=== PATIENT | female | born 1955 | race Caucasian/White ===

== ENCOUNTER → 2016-09-24 | Outpatient (CLI) | payer MEDICAID ==
--- NOTE | 2016-09-24 16:00 | DX ---
Cervical Spine, Two Views History: Pain. History of metastatic breast cancer. Findings: No evidence for a fracture. No significant spondylolisthesis. Facet arthropathy is seen radha aterally at multiple levels. This is more severe on the left at C2-C3, C3-C4, and C4-C5. Uncovertebra l joint hypertrophy is seen bilaterally. No evidence for aggressive osseous lesion. No evidence for p revertebral soft tissue swelling. Impression: Multilevel degenerative joint disease of the cervical spine, more severe on the left at C 2-C3 through C4-C5.
--- NOTE | 2016-09-24 16:13 | DX ---
Left Wrist, Three Views History: Wrist pain. History of metastatic breast cancer. Findings: There is diffuse demineralization. No evidence for acute fracture or dislocation. No signif icant joint narrowing or periarticular erosion. Impression: Diffuse demineralization. No definite acute fracture.
--- NOTE | 2016-09-24 16:21 | DX ---
Left Hand, Three Views History: Pain. History of metastatic breast cancer. Findings: There is diffuse demineralization. There is mild periarticular spurring at the first carpom etacarpal joint and first metacarpophalangeal joint, indicating mild degenerative change. No evidence for periarticular erosion. An ossification is seen at the terminal tuft of the left fifth finger, a sequela from old trauma. Mild cortical thickening and sclerosis at the proximal fifth phalanx, probab ly a sequela from old healed fracture. No evidence for acute fracture or dislocation. No evidence for aggressive osseous lesion. Impression: Diffuse demineralization. No evidence for acute fracture.
== END ==
LOC: FIMAGING 13:33
PROVIDERS: ATTEND Nurse Practitioner
DX: M50.31 Other cervical disc degeneration, high cervical region (principal); M50.321 Other cervical disc degeneration at C4-C5 level; M25.532 Pain in left wrist; M25.542 Pain in joints of left hand; Z85.3 Personal history of malignant neoplasm of breast

== ENCOUNTER 2017-01-03 16:30 | Emergency (ER) | payer MEDICAID ==
[2017-01-03 16:53] VITALS: TEMP 98.6
[2017-01-03] MEDS ORDERED: IPRATROPIUM/ALBUTEROL 3 ML DEYVIAL IH ONE (17:02)
[2017-01-03] MEDS ORDERED: NS 1,000 ML IV ONE (17:02)
--- NOTE | 2017-01-03 17:02 | EDPHY ---
H & P HPI/ROS: HPI CHIEF COMPLAINT: Shortness of breath HISTORY OF PRESENT ILLNESS: Patient very pleasant 61-year-old female she does have significant past medical history for breast cancer metastatic to her lungs and bone, she has a left pleural chest tube left posterior region that she drained yesterday. She also has a history of muscular dystrophy, as well as anxiety. History of pneumonia. She presents emergency room feeling short of breath progressively worse over the past week. No fever. She does have a cough but nonproductive. She does wear oxygen at night only and CPAP. Main complaint is worsening shortness of breath over the past week. She tells me she has no history of PE. She does tell me she has metastatic breast CA to her lung. She does see Dr. Fink with Oncology but is not undergoing any treatment at this time. Past Medical History: Breast CA, metastatic to lung and bone, muscular dystrophy, anxiety Past Surgical History: Mastectomy, left posterior chest pleural catheter Social History: Smokes tobacco, denies drugs alcohol Family History: Noncontributory ROS REVIEW OF SYSTEMS: A comprehensive 10 point review of systems is otherwise negative aside from elements mentioned in the history of present illness. Exam Constitutional triage nursing summary reviewed, vital signs reviewed, awake/ alert. Tachypnea, low O2. Eyes normal conjunctivae and sclera, EOMI, PERRLA. HENT normal inspection, atraumatic, moist mucus membranes, no epistaxis, neck supple/ no meningismus, no raccoon eyes. Respiratory tachypnea, decreased breath sounds bilaterally worse on the left than right Cardiovascular rate normal, regular rhythm, no murmur, no edema, distal pulses normal. Gastrointestinal soft, non-tender, no rebound, no guarding, normal bowel sounds, no distension, no pulsatile mass. Genitourinary no CVA tenderness. Musculoskeletal no midline vertebral tenderness, full range of motion, no calf swelling, no tenderness of extremities, no meningismus, good pulses, neurovascularly intact. Skin pink, warm, & dry, no rash, skin atraumatic. Neurologic awake, alert and oriented x 3, AAOx3, moves all 4 extremities equally, motor intact, sensory intact, CN II-XII intact, normal cerebellar, normal vision, normal speech. Psychiatric normal mood/affect. Heme/Lymph/Immune no lymphadenopathy. Differential Diagnosis: Includes but is not limited to in a particular order, pneumonia, pulmonary embolism, pleural effusion, pneumothorax, CHF, ACS Medical Decision Making: Plan for patient IV establishment full youth nutritional monitor , EKG, IV fluid bolus, lactic acid blood cultures, two view chest x-ray D-dimer for PE. DuoNeb breathing treatment. Re-evaluation: EKG interpretation by me on record in [employer] system. Impression time of EKG 17 10, this is sinus tachycardia rate of 101. Do not appreciate acute ischemic change. No ST elevations significant ST depression T-wave abnormality. [id number]: Patient received breathing treatment she states admitted very mild difference however still short of breath. Mildly tachypneic. X-ray has been reviewed shows left-sided pleural effusion haziness throughout both lung cid. Is noted this patient has a positive D-dimer. The setting of tachycardia and shortness of breath history of cancer will need to perform a CT angiogram to rule out pulmonary embolism. Troponin still pending. CT scan of the angiogram chest with IV contrast. The results of the study are this shows no pulmonary embolism however does show moderate left-sided pleural effusion, ear broncho backwards and atelectasis, no focal pneumonia, osseous lesion left 7th rib with a pathological fracture, possible small osseous lesion left left 11th rib otherwise no acute other pathology in the chest.. The study was read by Dr. Clyde Addison I viewed the images myself on the PACS system. 1940: I had a very long discussion with the patient she is refusing hospital admission. I explained that I would like to hospitalize her for tachypnea and low oxygen level left-sided pleural effusion atelectasis. Given that she has muscular dystrophy in her muscles are chronically weak has a respiratory process going on she understands would like to keep her in the hospital for observation close monitor respiratory status. However she is declining hospitalization refusing hospitalization. She would like to go home. I explained that she will need to sign out against medical advice as I explained to her that I would really like to keep her and that if she leaves there is a great chance of increasing morbidity, even mortality or worsening respiratory status. Respiratory decline. She still is refusing hospitalization she does understand the risk of this. She would like to go home. I explained I will prescribe her azithromycin at her request an albuterol inhaler however if she has any worsening symptoms at any time including worsening trouble breathing, shortness of breath chest pain does not feel well she needs to seek medical attention in the emergency room she understands. Patient has signed out against medical advice. AMA form has been signed. Witnessed by Michelle Xiong RN. Source: Patient - Personal History Tetanus Vaccine Date: WITHIN 10 YRS - Medical/Surgical History Hx Asthma: No Hx Chronic Respiratory Disease: Yes Hx Diabetes: No Hx Cardiac Disease: No Hx Renal Disease: No Hx Cirrhosis: No Hx Alcoholism: No Hx HIV/AIDS: No Hx Splenectomy or Spleen Trauma: No Other PMH: MD,MASTECTOMY,KIDNEY STONES,RESP-PNEUMONIA X2 THIS PAST YEAR(2013) WEARS HOME O2 AT HS - Social History Smoking Status: Never smoked Constitutional: Initial Vital Signs Temperature (C) 37 C 01/03/17 16:37 Heart Rate 102 H 01/03/17 16:37 Respiratory Rate 18 01/03/17 16:37 Blood Pressure 139/91 H 01/03/17 16:37 O2 Sat (%) 91 L 01/03/17 16:37 O2 Delivery Mode Nasal Cannula O2 (L/minute) 2 Allergies/Adverse Reactions: Sulfa (Sulfonamide Antibiotics) Allergy (Intermediate, Verified 10/15/14 13:01) Home Medications: Medication Instructions Recorded Muscle Relaxers 04/12/15 AZITHROMYCIN [Z-PACK] 250 mg PO DAILY #6 tab 01/03/17 Albuterol [Proventil Inhaler HFA 1 - 2 puffs IH Q4H #1 mdi 01/03/17 (*)] Medical Decision Making - Diagnostics Imaging Results: Imaging Impressions Chest X-Ray 01/03/17 17:02 Impression: 1. Stable position of Braxton drain left hemithorax. 2. Stable mild to moderate left effusion with possible small right effusion layering posteriorly. 3. Lytic lesion suspected posterior lateral left seventh rib. Chest/Thorax CTA 01/03/17 17:57 Impression: 1. There is no CT evidence of pulmonary artery thromboemboli. 2. Status post right mastectomy and right axillary charisse dissection. 3. Moderate left pleural effusion with a percutaneous drain present and left lower lobe atelectasis and infiltrate with peribronchial thickening, left greater than right. There is also some very mild subsegmental atelectasis at the right costophrenic angle. 4. Osseous metastases, with a pathologic fracture of the left seventh posterior rib. Findings were discussed with Gabino Sánchez MD at 19:24, on 01/03/2017. - Data Points Laboratory Results: Laboratory Results 01/03/17 17:20 01/03/17 17:20 01/03/17 01/03/17 01/03/17 17:20 17:20 17:20 WBC RBC Hgb Hct MCV MCH MCHC RDW Plt Count MPV Neut % (Auto) Lymph % (Auto) Carter % (Auto) Eos % (Auto) Baso % (Auto) Nucleat RBC Rel Count Absolute Neuts (auto) Absolute Lymphs (auto) Absolute Monos (auto) Absolute Eos (auto) Absolute Basos (auto) Absolute Nucleated RBC Immature Gran % Immature Gran # PT 13.0 SEC SEC (12.0-15.0) INR 1.01 (0.83-1.16) APTT 31.6 SEC SEC (23.0-38.0) D-Dimer 0.94 ug/mLFEU H ug/mLFEU (0.00-0.50) VBG Lactic Acid 1.0 mmol/L mmol/L (0.7-2.1) Sodium 137 mEq/L mEq/L (134-144) Potassium 4.2 mEq/L mEq/L (3.5-5.2) Chloride 100 mEq/L mEq/L (97-110) Carbon Dioxide 23 mEq/l mEq/l (22-31) Anion Gap 14 mEq/L mEq/L (8-16) BUN 10 mg/dL mg/dL (7-23) Creatinine 0.3 mg/dL L mg/dL (0.6-1.0) Estimated GFR > 60 Glucose 93 mg/dL mg/dL (70-100) Calcium 9.1 mg/dL mg/dL (8.5-10.4) Magnesium 1.8 mg/dL mg/dL (1.6-2.3) Total Bilirubin 0.8 mg/dL mg/dL (0.1-1.4) Conjugated Bilirubin 0.5 mg/dL mg/dL (0.0-0.5) Unconjugated Bilirubin 0.3 mg/dL mg/dL (0.0-1.1) AST 42 IU/L IU/L (14-46) ALT 46 IU/L IU/L (9-52) Alkaline Phosphatase 94 IU/L IU/L (38-126) Creatine Kinase 121 IU/L IU/L (0-156) CK-MB (CK-2) Fraction 5.74 ng/mL H ng/mL (0-4.55) CK-MB (CK-2) % 4.7 % H % (0.0-4.0) Creatine Kinase Interp POSITIVE H (NEGATIVE) Troponin I < 0.012 ng/mL ng/mL (0-0.034) NT-Pro-B Natriuret Pep 215 pg/mL H pg/mL (0-125) Total Protein 6.8 g/dL g/dL (6.3-8.2) Albumin 3.7 g/dL g/dL (3.5-5.0) Lipase 96.0 IU/L IU/L (23-300) 01/03/17 17:20 WBC 5.11 10^3/uL 10^3/uL (3.80-9.50) RBC 4.60 10^6/uL 10^6/uL (4.18-5.33) Hgb 15.7 g/dL g/dL (12.6-16.3) Hct 45.1 % % (38.0-47.0) MCV 98.0 fL fL (81.5-99.8) MCH 34.1 pg pg (27.9-34.1) MCHC 34.8 g/dL g/dL (32.4-36.7) RDW 13.5 % % (11.5-15.2) Plt Count 240 10^3/uL 10^3/uL (150-400) MPV 9.0 fL fL (8.7-11.7) Neut % (Auto) 62.3 % % (39.3-74.2) Lymph % (Auto) 24.9 % % (15.0-45.0) Carter % (Auto) 10.6 % % (4.5-13.0) Eos % (Auto) 1.2 % % (0.6-7.6) Baso % (Auto) 0.6 % % (0.3-1.7) Nucleat RBC Rel Count 0.0 % % (0.0-0.2) Absolute Neuts (auto) 3.19 10^3/uL 10^3/uL (1.70-6.50) Absolute Lymphs (auto) 1.27 10^3/uL 10^3/uL (1.00-3.00) Absolute Monos (auto) 0.54 10^3/uL 10^3/uL (0.30-0.80) Absolute Eos (auto) 0.06 10^3/uL 10^3/uL (0.03-0.40) Absolute Basos (auto) 0.03 10^3/uL 10^3/uL (0.02-0.10) Absolute Nucleated RBC 0.00 10^3/uL 10^3/uL (0-0.01) Immature Gran % 0.4 % % (0.0-1.1) Immature Gran # 0.02 10^3/uL 10^3/uL (0.00-0.10) PT INR APTT D-Dimer VBG Lactic Acid Sodium Potassium Chloride Carbon Dioxide Anion Gap BUN Creatinine Estimated GFR Glucose Calcium Magnesium Total Bilirubin Conjugated Bilirubin Unconjugated Bilirubin AST ALT Alkaline Phosphatase Creatine Kinase CK-MB (CK-2) Fraction CK-MB (CK-2) % Creatine Kinase Interp Troponin I NT-Pro-B Natriuret Pep Total Protein Albumin Lipase Medications Given: Discontinued Medications Albuterol/Ipratropium (Duoneb) 3 ml IH EDNOW ONE Stop: 01/03/17 17:03 Last Admin: 01/03/17 17:45 Dose: 3 ml Sodium Chloride (Ns) 1,000 mls @ 0 mls/hr IV ONCE ONE PRN Reason: Wide Open Stop: 01/03/17 17:03 Last Admin: 01/03/17 17:40 Dose: 1,000 mls Departure - Departure Disposition: Against Medical Advice Clinical Impression: Hypoxia, Pleural effusion, Atelectasis Dyspnea Qualifiers: Dyspnea type: unspecified Qualified Code(s): R06.00 - Dyspnea, unspecified Condition: Fair Instructions: Dyspnea (ED), Hypoxia (ED) Additional Instructions: 1. Please return emergency room if he changed her mind about hospital admission. 2. Return emergency room immediately if you have worsening symptoms includes worsening shortness of breath, chest pain you do not feel well. Referrals: ALICE CARRION,. [Primary Care Provider] - As per Instructions Prescriptions: Albuterol [Proventil Inhaler HFA (*)] 1 - 2 puffs IH Q4H #1 mdi AZITHROMYCIN [Z-PACK] 250 mg PO DAILY #6 tab
--- NOTE | 2017-01-03 17:11 | CPEKG ---
Heart Rate: 101 RR Interval: 594 P-R Interval: 140 QRSD Interval: 82 QT Interval: 356 QTC Interval: 462 P [place]: 55 QRS [place]: 29 T Wave [place]: 38 EKG Severity - OTHERWISE NORMAL ECG - EKG Impression: SINUS TACHYCARDIA Electronically Signed By: Luis A Aguilera 04-Jan-2017 14:25:43
[2017-01-03 17:30] LABS: % IMMATURE GRANULYOCYTES 0.4 % (0.0-1.1); ABSOLUTE IMMATURE GRANULOCYTES 0.02 10^3/uL (0.00-0.10); ADD DIFF? NO; ADD MORPH? NO; ADD SCAN? NO; ATYPICAL LYMPHOCYTE FLAG 10 (0-99); FRAGMENT RBC FLAG 0 (0-99); HEMATOCRIT 45.1 % (38.0-47.0); HEMOGLOBIN 15.7 g/dL (12.6-16.3); LEFT SHIFT FLG 0 (0-99); LIPEMIA HEMOLYSIS FLAG 90 (0-99); MEAN CELL HEMOGLOBIN 34.1 pg (27.9-34.1); MEAN CELL HEMOGLOBIN CONCENTR. 34.8 g/dL (32.4-36.7); PLATELET CLUMPS FLAG 20 (0-99); PLATELET COUNT 240 10^3/uL (150-400); RED CELL DISTRIBUTION WIDTH 13.5 % (11.5-15.2)
[2017-01-03 17:41] LABS: INR 1.01 (0.83-1.16)
[2017-01-03 17:42] LABS: APTT 31.6 SEC (23.0-38.0)
[2017-01-03 17:45] LABS: ALANINE AMINOTRANSFERASE 46 IU/L (9-52); ALBUMIN 3.7 g/dL (3.5-5.0); ALKALINE PHOSPHATASE 94 IU/L (38-126); ANION GAP 14 mEq/L (8-16); ASPARTATE AMINOTRANSFERASE 42 IU/L (14-46); BILIRUBIN,TOTAL 0.8 mg/dL (0.1-1.4); BILIRUBIN-CONJUGATED 0.5 mg/dL (0.0-0.5); BILIRUBIN-UNCONJUGATED 0.3 mg/dL (0.0-1.1); CALCIUM 9.1 mg/dL (8.5-10.4); CARBON DIOXIDE 23 mEq/l (22-31); CHLORIDE 100 mEq/L (97-110); CREATININE 0.3 mg/dL (0.6-1.0); GLOMERULAR FILTRATION RATE > 60; GLUCOSE 93 mg/dL (70-100); MAGNESIUM 1.8 mg/dL (1.6-2.3); POTASSIUM 4.2 mEq/L (3.5-5.2); SODIUM 137 mEq/L (134-144); TOTAL PROTEIN 6.8 g/dL (6.3-8.2)
[2017-01-03 18:01] LABS: TROPONIN I < 0.012 ng/mL (0-0.034)
[2017-01-03 18:03] LABS: CREATINE KINASE-MB FRACTION 5.74 ng/mL (0-4.55)
[2017-01-03 18:06] LABS: CK-MB INTERPRETATION POSITIVE (NEGATIVE)
[2017-01-03] MEDS ORDERED: IOPAMIDOL (ISOVUE 370) 100 ML BTL IV ONE ×2 (18:10→18:37)
[2017-01-03 18:11] VITALS: RESP 28
[2017-01-03] MEDS ORDERED: AZITHROMYCIN 250 MG TAB PO ONE (19:44)
[2017-01-03] MEDS ORDERED: OXYCODONE/APAP 5/325MG PREPACK#4 BTL TAKEHOME ONE (20:07)
[2017-01-03 20:17] VITALS: BP 170/112; PULSE 88; O2SAT 91
== END 2017-01-03 20:16 | disposition left against medical advice (07) ==
LOC: CED 16:30
DX: R09.02 Hypoxemia (principal); J98.11 Atelectasis; J90 Pleural effusion, not elsewhere classified; Z85.118 Personal history of other malignant neoplasm of bronchus and lung; Z85.3 Personal history of malignant neoplasm of breast
CPT/HCPCS: 71010-PO; 71275-PO; 80048-PO; 80076-PO; 82550-PO; 82553-PO; 83605-PO; 83690-PO; 83735-PO; 83880-PO; 84484-PO; 85025-PO; 85378-PO; 85610-PO; 85730-PO; Q9967

== ENCOUNTER 2017-01-10 16:13 | Emergency (ER) | payer MEDICAID ==
[2017-01-10 16:46] VITALS: BP 165/92; PULSE 108; RESP 20; TEMP 98.6; O2SAT 87
[2017-01-10] MEDS ORDERED: ONDANSETRON DISINTEGRATING 4 MG TAB PO ONE (16:58)
[2017-01-10] MEDS ORDERED: OXYCODONE/APAP 5/325 TAB PO ONE (17:21)
--- NOTE | 2017-01-10 17:38 | EDPHY ---
H & P Stated Complaint: LEFT POSTERIOR LUNG DRAINAGE TUBE PAIN AT SITE SINCE SUNDAY Time Seen by Provider: 01/10/17 16:39 HPI/ROS: This patient has metastatic breast cancer and presents with increasing left posterior chest wall pain. She is concerned about possible infection at her pulmonary catheter site posteriorly on the left. She was seen here [address] Sánchez who work the patient up for increased dyspnea at that time and given an elevated D-dimer at that time she underwent CT angio chest which ruled out PE, confirmed longstanding left-sided effusion for which she has pulmonic drain in revealed a lytic lesion with pathological fracture of the left 7th rib posteriorly, lytic lesion to the level throat posteriorly and lytic lesion to T12 centrally. The patient admits that she is not taking Percocet because it makes her constipated but reports that she had difficulty sleeping due to the posterior rib pain last night. She feels that her dyspnea has improved. She is interested in having more antibiotics and she felt that her symptoms of dyspnea improved with treatment with the [place] that she received during her last visit for treatment of possible bronchitis. ROS: No fevers or chills. No other constitutional symptoms except baseline fatigue and weakness HEENT: No complaints except for a sore throat in the mornings for quite some time. She requests strep test. Pulmonary: Ongoing dyspnea somewhat improved from last week and at baseline currently. She reports 800 out from her pulmonic drain over the last 24 hours. Cardiovascular: No lightheadedness. No heart palpitations. No anterior chest pain. No lower extremity swelling or calf pain currently GI: She has chronic nausea and occasionally vomits. No recent change in that. No belly pain at this time. Neuro: She reports feeling of paresthesias occasional numbness around the T12 dermatome anteriorly. No other new neuro symptoms. Integumentary: She reports some scabbing at the site of the pulmonic drain posteriorly. No skin rash. Complete review of symptoms is otherwise negative. Source: Patient Exam Limitations: No limitations - Personal History Tetanus Vaccine Date: WITHIN 10 YRS - Medical/Surgical History PMH: Metastatic lung cancer Patient was on estrogen inhibitor that she stop taking in September of her own accord for reasons that are not entirely clear at this time. Hx Asthma: No Hx Chronic Respiratory Disease: Yes Hx Diabetes: No Hx Cardiac Disease: No Hx Renal Disease: No Hx Cirrhosis: No Hx Alcoholism: No Hx HIV/AIDS: No Hx Splenectomy or Spleen Trauma: No Other PMH: MD,MASTECTOMY,KIDNEY STONES,RESP-PNEUMONIA X2 THIS PAST YEAR(2013) WEARS HOME O2 AT HS - Social History Smoking Status: Never smoked Constitutional: Initial Vital Signs Temperature (C) 37.0 C 01/10/17 16:20 Heart Rate 108 H 01/10/17 16:20 Respiratory Rate 20 01/10/17 16:20 Blood Pressure 165/92 H 01/10/17 16:20 O2 Sat (%) 87 L 01/10/17 16:20 O2 Delivery Mode Room Air Allergies/Adverse Reactions: Sulfa (Sulfonamide Antibiotics) Allergy (Intermediate, Verified 01/10/17 16:37) Home Medications: Medication Instructions Recorded Muscle Relaxers 04/12/15 AZITHROMYCIN [Z-PACK] 250 mg PO DAILY #6 tab 01/03/17 Albuterol [Proventil Inhaler HFA 1 - 2 puffs IH Q4H #1 mdi 01/03/17 (*)] Docusate Sodium [Colace 100 MG (*)] 100 mg PO BID #30 cap 01/10/17 Lidocaine 5% [Lidoderm 5% Patch 2 ea TD DAILY #30 patch 01/10/17 (*)] oxyCODONE/APAP 5/325 [Percocet 1 - 2 tab PO Q4-6PRN PRN #12 tab 01/10/17 5/325 (*)] Medical Decision Making ED Course/Re-evaluation: Discussion: I had an extensive talk with this patient regarding her current symptoms and possibilities for workup. Clinically I feel her posterior rib pain is consistent with the 7th rib pathologic fracture and 11th lytic lesion noted on her CT angio chest on 01/03/17. I think that her paresthesias & intermittent numbness in the T12 dermatome correspond to her T12 lytic lesion. However, she has no acute motor sx's or long-track symptoms/findings. She seemed r somewhat reassured knowing that there is some anatomic correlation between her current somatic symptoms and underlying lytic lesions and pathologic fx noted on CT chest results from a week ago. 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 We had a ava conversation about whether she feels she wants to enter a palliative approach to her metastatic cancer versus further cancer treatment. She agrees to follow up with Dr. Fink , her oncologist to discuss her treatment plan. I also discussed other analgesic possibilities including lidocaine patch, and NSAIDs. Patient requests Percocet here and is given a Percocet PO. - Data Points Laboratory Results: 01/10/17 01/10/17 Unknown 17:40 Group A Strep Screen NEGATIVE (NEGATIVE) Group A Strep DNA Pending Medications Given: Discontinued Medications Ondansetron HCl (Zofran Odt) 4 mg PO EDNOW ONE Stop: 01/10/17 16:59 Last Admin: 01/10/17 17:00 Dose: 4 mg Oxycodone/Acetaminophen (Percocet 5/325) 1 tab PO EDNOW ONE Stop: 01/10/17 17:22 Last Admin: 01/10/17 17:25 Dose: 1 tab Departure - Departure Disposition: Home, Routine, Self-Care Clinical Impression: Pathologic 7th rib fracture, T12 lytic lesion, Paresthesias, Metastatic breast cancer Condition: Good Instructions: Rib Fracture (ED) Additional Instructions: Diagnoses: 1. Pathologic fracture to the left 7th rib from lytic bony lesion 2. 11th posterior rib lytic lesion 3. T12 vertebrae lytic lesion I think that your current pain is attributable to your rib lesions and fracture. Paresthesias or/tingling in the anterior belly are likely related to the thoracic spine lesion. Plan: Call Dr. Fink tomorrow morning to arrange follow-up appointment for sometime this week to discuss your plan for your cancer treatment. Consider adding Lidoderm patches over painful areas of your ribs to help control the pain Take Colace stool softener while your on the Percocet to prevent constipation Remember that she can take Tylenol with the Percocet with a dose of 1000 mg per 6 hours if needed for pain control. Return for any significant worsening despite the treatment plan. Referrals: ALICE CARRION,. [Primary Care Provider] - As per Instructions Nabil Fink MD [Medical Doctor] - As per Instructions Prescriptions: Docusate Sodium [Colace 100 MG (*)] 100 mg PO BID #30 cap Lidocaine 5% [Lidoderm 5% Patch (*)] 2 ea TD DAILY #30 patch oxyCODONE/APAP 5/325 [Percocet 5/325 (*)] 1 - 2 tab PO Q4-6PRN PRN #12 tab PRN Reason: Pain
== END 2017-01-10 17:59 | disposition home or self-care (01) ==
LOC: CED 16:13
DX: C79.81 Secondary malignant neoplasm of breast (principal); M84.48XA Pathological fracture, other site, initial encounter for fracture; M89.9 Disorder of bone, unspecified; R20.2 Paresthesia of skin
CPT/HCPCS: 87880-PO

== ENCOUNTER 2017-06-22 14:16 | Emergency (ER) | payer MEDICAID | END 2017-06-22 14:40 | disposition left against medical advice (07) | LOC: CED 14:16 | DX: Z53.21 Procedure and treatment not carried out due to patient leaving prior to being seen by health care provider (principal) ==

== ENCOUNTER 2017-06-22 15:24 | Emergency (ER) | payer MEDICAID ==
[2017-06-22 15:34] VITALS: TEMP 98.6
[2017-06-22 15:37] VITALS: O2SAT 93
--- NOTE | 2017-06-22 17:02 | EDPHY ---
General Narrative: CHIEF COMPLAINT: Malfunction of chest tube HISTORY OF PRESENT ILLNESS: Patient presents with complaints of possible in a function of chest tube this started on Sunday evening. She presents with her daughter in law at bedside. She says that she has a chest tube in place from pleural effusion that was placed 2 years ago at [facility]. She does not known the name of the physician, but she thinks was a plant facilities technician. She was sent from [facility] for this. She has had this in place the entire time. She drained every other day. She has not been told to have it removed. She has a history of metastatic breast cancer status post mastectomy with no current treatment. She says that the tube was leaking the bottom of it starting Sunday. She has had no leakage around the insertion site but the suture has broken free from that. The tube has not been changed and is the original to. No chest pain. No fever. No cough. No shortness of breath. She is dependent on 2 L nasal cannula during the day and CPAP at night. No trauma or injury. No other associated complaints or modifying factors. REVIEW OF SYSTEMS: Ten systems reviewed and are negative unless otherwise noted in the HPI PCP: [facility] SPECIALISTS: Dr. Fink, oncology Dr. Charlton, urology PAST MEDICAL HISTORY: Metastatic breast cancer, muscular dystrophy PAST SURGICAL HISTORY: Right mastectomy, right ureteral stent placement and removal SOCIAL HISTORY: Nonsmoker. Lives with her family in [place]. FAMILY HISTORY: Noncontributory EXAMINATION General Appearance: Alert, no distress. Wheelchair dependent. Frail Head: normocephalic, atraumatic Eyes: Pupils equal and round, no conjunctival pallor or injection ENT, Mouth: Mucous membranes moist. Uvula midline. Airway patent. Nasal cannula placement Neck: Normal inspection, supple, non-tender Respiratory: Scattered rhonchi. No consolidation or diminishment. There is a chest tube for a posterior approach on the left side subscapular region. The sutures are not in place for the attachment anchor. There is no surrounding erythema or purulence. No induration. No signs of infection or leakage. Cardiovascular: Regular rate and rhythm. No murmur Neurological: A&O, nonfocal, baseline neuro status with decreased range of motion of the arms and legs consistent with MD. Skin: Warm and dry, no rash. No petechiae purpura. There is no surrounding erythema, purulence or induration at the insertion site of the chest tube. The sutures have come free from the skin and are still in the wings of the anchor of the chest tube. Psychiatric: Mood and affect normal DIFFERENTIAL DIAGNOSES: Including but not limited to tube malfunction, pneumothorax, hemothorax, pleural effusion MDM: 4:15 p.m. Tube malfunction of a chronic chest tube from the left approach. She has no complaints of pneumonia or infection. She is only concerned that the tube will leak and she will accumulate air. She was told to come to the emergency department for tube exchange. I have inspected the remainder of the tube and it is normal in appearance despite the chronicity. There is no leakage other than the very distal end of the tube, and this is a serous leakage from the tube. She is in no acute distress. 4:30 p.m. Case discussed with on-call oncologist, Dr. Morales. He is aware the patient's scenario. He is comfortable with me temporizing the tube. If she tolerates that and her chest x-ray is unremarkable. He will help have the patient evaluated for interventional radiology tube exchange next week. Case discussed with Dr. Sánchez and he will evaluate as well. 4:55 p.m. I was able to remove the distal 2 cm of the chest tube. This was done while clamped in 2 places to ensure that there was no air leak. I was then able to replace the existing valve back into the tube. I removed the clamps and there was no leakage of any serous fluid. The wings of the catheter at the insertion site had come free from the skin. I anesthetized the area with 1% lidocaine plain, 5 mL. I then sutured the wings back to the skin using 2-0 silk. Two simple interrupted sutures. This was done without complication. Tolerated well. I reviewed the chest x-ray with Dr. Sánchez. I have discussed the x-ray with Dr. Morales. While the x-rays not normal, it is stable from previous x- rays 6 months ago. There may be some worsening erosion of rib structures. The chest tube is in place and there is no air leak. There is no significant pleural effusion, pneumothorax or hemothorax. Vital signs are stable. We are all in agreement that the patient may be discharged home at this time. Dr. Morales and/or Dr. Fink will help arrange for interventional radiology tube exchange if it is warranted next week. The patient and her family member are comfortable with this plan. She was very appreciative of the tube being temporized. She will be discharged home stable conditions with strict ED precautions for this. - History Smoking Status: Current every day smoker - Objective Vital Signs: Initial Vital Signs Temperature (C) 98.6 F 06/22/17 15:30 Heart Rate 108 H 06/22/17 15:30 Respiratory Rate 20 06/22/17 15:30 Blood Pressure 151/94 H 06/22/17 15:30 O2 Sat (%) 91 L 06/22/17 15:30 O2 Delivery Mode Nasal Cannula O2 (L/minute) 2 Allergies/Adverse Reactions: Sulfa (Sulfonamide Antibiotics) Allergy (Intermediate, Verified 06/22/17 15:29) Home Medications: Medication Instructions Recorded Muscle Relaxers 04/12/15 Albuterol [Proventil Inhaler HFA 1 - 2 puffs IH Q4H #1 mdi 01/03/17 (*)] Docusate Sodium [Colace 100 MG (*)] 100 mg PO BID #30 cap 01/10/17 Lidocaine 5% [Lidoderm 5% Patch 2 ea TD DAILY #30 patch 01/10/17 (*)] oxyCODONE/APAP 5/325 [Percocet 1 - 2 tab PO Q4-6PRN PRN #12 tab 01/10/17 5/325 (*)] Departure - Departure Disposition: Home, Routine, Self-Care Clinical Impression: Chest tube in place, Metastatic breast cancer Complication of chest tube Qualifiers: Encounter type: initial encounter Qualified Code(s): T85.9XXA - Unspecified complication of internal prosthetic device, implant and graft, initial encounter Condition: Good Instructions: How to Care for Your Chest or Abdominal Catheter (ED) Additional Instructions: 1. Continue Your tube drains as previously instructed. 2. Return to ED for leakage, chest pain or shortness of breath Referrals: [facility]IFIC [Other] - As per Instructions Demond Morales MD [Medical Doctor] - As per Instructions Nabil Fink MD [Medical Doctor] - As per Instructions
[2017-06-22 17:11] VITALS: BP 142/90; PULSE 98; RESP 16
== END 2017-06-22 17:09 | disposition home or self-care (01) ==
DX: T85.698A Other mechanical complication of other specified internal prosthetic devices, implants and grafts, initial encounter (principal); C50.919 Malignant neoplasm of unspecified site of unspecified female breast; F17.200 Nicotine dependence, unspecified, uncomplicated; Y82.8 Other medical devices associated with adverse incidents

== ENCOUNTER → 2017-08-10 | Outpatient (CLI) | payer MEDICAID | LOC: FIMAGING 12:05 | PROVIDERS: ATTEND Internal Medicine Hematology & Oncology | DX: J90 Pleural effusion, not elsewhere classified (principal); M99.88 Other biomechanical lesions of rib cage; G71.0 Muscular dystrophy; C50.919 Malignant neoplasm of unspecified site of unspecified female breast; Z97.8 Presence of other specified devices | CPT/HCPCS: 86300-90 ==

== ENCOUNTER 2017-09-23 14:50 | Inpatient (IN) | payer MEDICAID ==
--- NOTE | 2017-09-23 15:09 | EDPHY ---
H & P Time Seen by Provider: 09/23/17 14:50 HPI/ROS: CHIEF COMPLAINT: Pain and altered mental status HISTORY OF PRESENT ILLNESS: History is from EMS and 2 caregivers who arrived with the patient but she is nonverbal. Apparently she has breast cancer with extensive metastases and is transitioning to hospice. [facility] was out last night but could not take her because she was altered and was not able to sign a form of for them, and her power of admitted attorneys who was her ex- is unreachable even though he [place]. A caregiver said they gave her 2 Percocet and oral Ativan prior to arrival because she was in pain at home and during transport she was nonverbal. 1 caregiver says that the patient when told that "it was time "and asked if it was okay that hospice get involved she said "yes, "but the other caregiver tells me that after hospice was at the house last night the patient told her that she "wants to think about it. " R further history and review of systems is unobtainable because the patient is nonverbal on arrival PAST MEDICAL HISTORY: Metastatic breast cancer and muscular dystrophy Social history: Still smokes cigarettes and had some gama last night. General Appearance: Lethargic, nonverbal Eyes: No scleral icterus. ENT, Mouth: Dry mucous membranes. Respiratory: Normal respiratory effort, breath sounds equal, lungs are clear to auscultation. Cardiovascular: Regular rate and rhythm. Gastrointestinal: Abdomen is soft and non tender. Neurological: Lethargic, will occasionally smile, no spontaneous movement in extremities. Skin: Warm and dry, no rashes. Musculoskeletal: No peripheral edema. Psychiatric: Unable, nonverbal Emergency Department course/MDM: 1507: per Benigno Fink, patient declined hospice last night. Recommends admission to hospitalist service for further evaluation. 1508: [place] for hospitalist. 1649: POA is arrived, a conversation ongoing between case management and hospice as to whether she can go there directly from here. 2 mg IV morphine. No additional diagnostics or therapeutics, POA and caregivers in agreement at this time, will admit then transition to hospice when able; not able tonight per case management. Smoking Status: Current every day smoker Constitutional: Initial Vital Signs Temperature (C) 36.1 C 09/23/17 14:50 Heart Rate 108 H 09/23/17 14:50 Respiratory Rate 12 09/23/17 14:50 Blood Pressure 147/94 H 09/23/17 14:50 O2 Sat (%) 86 L 09/23/17 14:50 O2 Delivery Mode Room Air O2 (L/minute) 4 Allergies/Adverse Reactions: Sulfa (Sulfonamide Antibiotics) Allergy (Intermediate, Verified 06/22/17 15:29) Home Medications: Medication Instructions Recorded Muscle Relaxers 04/12/15 Albuterol [Proventil Inhaler HFA 1 - 2 puffs IH Q4H #1 mdi 01/03/17 (*)] Docusate Sodium [Colace 100 MG (*)] 100 mg PO BID #30 cap 01/10/17 Lidocaine 5% [Lidoderm 5% Patch 2 ea TD DAILY #30 patch 01/10/17 (*)] oxyCODONE/APAP 5/325 [Percocet 1 - 2 tab PO Q4-6PRN PRN #12 tab 01/10/17 5/325 (*)] Medical Decision Making Differential Diagnosis: Differential for altered mental status considered including but not limited to metabolic abnormality, cancer, infection, medication related. - Data Points Medications Given: Discontinued Medications Morphine Sulfate (Morphine) 2 mg IVP EDNOW ONE Stop: 09/23/17 17:04 Last Admin: 09/23/17 17:06 Dose: 2 mg Departure - Departure Disposition: [facility] Acute Clinical Impression: Metastatic breast cancer Condition: Fair
[2017-09-23 15:34] LABS: PLATELET COUNT 218 10^3/uL (150-400)
--- NOTE | 2017-09-23 17:38 | ASMTCMCOM ---
CM Note CM Note Notes: Pt presented to the ED via EMS from home for pain related to chemo treatments and altered mental status. Patient's longtime friend and her former compensation expert, Nikia Vega ([phone]), and other former caregiver and friend Lyndsey Buchanan ([phone]) arrived to the ED. Spoke with Sheyla at length regarding patient being started on hospice. Per Sheyla, [facility] ([phone]) went to the p't's home yesterday and completed an informational session but at that time the pt was undecided whether she wanted to start hospice. [facility] followed up with pt, Lyndsey Montejo and pt's [id number] Gloria Quiroz ([phone]) today about admitting to hospice but since the patient's mental status had become more altered, [facility] would need patient's POA, her ex- Blaze Cruz ([phone]) to sign the necessary paperwork to admit. Sheyla made multiple attempts to contact Blaze today but he was on a flight back home to [place]. This CM was able to speak to Blaze who was on his way from [facility] to [facility]. Blaze arrived to ED with POA paperwork (which was scanned into pt's e-chart). He is willing to sign paperwork to admit pt to hospice. Blaze, Lyndsey Montejo, Gloria and several friends/caregivers in the room agree that it would be best for patient to be started on hospice. Spoke with Heather at [facility] and she tried to see if an RN was available to complete an admission tonight and that the RN would have orders for pain control (so pt could potentially dc home with hospice tonight), but ultimately an RN was unavailable. Pt admitted for pain control with plans for [facility] to assess/admit at 10a.m. Blaze is aware he needs to be present and will try to arrive by 9:45am. There was discussion about patient being directly admitted to [facility] if there is a bed available; this appears to be family and friend's preference if possible. CM to follow. Date Signed: 09/23/2017 05:37 PM Electronically Signed By:Winifred Pennington RN
[2017-09-23] MEDS ORDERED: ONDANSETRON DISINTEGRATING 4 MG TAB PO PRN (18:09)
[2017-09-23] MEDS ORDERED: ACETAMINOPHEN 325 MG TAB PO PRN (18:09)
[2017-09-23] MEDS ORDERED: ONDANSETRON 4 MG/2 ML VIAL IVP PRN (18:09)
[2017-09-23] MEDS ORDERED: LORazepam 2 MG/ML INJ IVP PRN (18:11)
--- NOTE | 2017-09-23 18:35 | GHP ---
[f rep st] HISTORY AND PHYSICAL DATE OF ADMISSION: 09/23/2017 CHIEF COMPLAINT: Pain. HISTORY OF PRESENT ILLNESS: This is a 61-year-old female with a history of metastatic breast cancer. She has been fighting cancer for many years and was in remission for some time until 2 years ago wh en she developed metastatic disease. She has been getting therapy. Apparently she has been close to transitioning to hospice. Apparently last night, patient had told them that it was time to transiti on to hospice. She has had significant pain today and came to the emergency department. Currently, she is lethargic and not verbal. REVIEW OF SYSTEMS: Unable to obtain secondary to patient's mental status. PAST MEDICAL HISTORY: Metastatic breast cancer, muscular dystrophy. SOCIAL HISTORY: Does smoke, a little bit of alcohol as well. FAMILY HISTORY: Unknown. PHYSICAL EXAMINATION: VITAL SIGNS: Afebrile, blood pressure is 123/81, heart rate 104, oxygen satur ation 98% on 4 L. GENERAL: The patient is cachectic and in no apparent distress. HEENT: Nonicteri c sclerae. Dry mucous membranes. NECK: Supple. LUNGS: Poor effort. Clear to auscultation bilate rally. CARDIOVASCULAR: Regular rate and rhythm. No murmurs, rubs, or gallops. ABDOMEN: Positive bowel sounds. Soft, nontender, nondistended. No hepatosplenomegaly. EXTREMITIES: No clubbing, cya nosis, or edema. SKIN: Without rash. Warm, dry, intact. NEURO: Essentially obtunded. LABS: CBC is normal. Chemistry does show an elevated CO2 at 32, calcium. ASSESSMENT: This is a 61-year-old female with a history of metastatic breast cancer being admitted f or transition to hospice. PLAN: The patient will be admitted and hospice evaluation will be ordered. I have written for morph ine and Ativan and antiemetics as needed. /[id number]/MODL
[2017-09-23 19:39] VITALS: TEMP 97.6
[2017-09-24 00:05] VITALS: BP 112/67; PULSE 105; RESP 22; O2SAT 84
--- NOTE | 2017-09-24 09:40 | PDMN ---
Medical Necessity Medical necessity: Pt meets IP criteria per MD; est los >2 mn for eval/tx of pain r/t metastatic breast cancer; pt lethargic & non-verbal; admit for IV pain meds/antiemetics & hospice evaluation; hx muscular dystrophy; per H&P & order
--- NOTE | 2017-09-25 15:47 | ASDISCHSUM ---
Discharge Information Plan Status:Hospice-Home Medically Cleared to Leave: Discharge Date:09/24/2017 04:00 AM CM D/C Disposition: ADT D/C Disposition: Projected Discharge Date:09/24/2017 04:00 AM Transportation at D/C: Discharge Delay Reason: Follow-Up Date:09/24/2017 04:00 AM Discharge Slot: Final Diagnosis: Placement Information Patient Contact Information Contact Name:BOBBY Relationship:Other Address: Work Phone: City: [facility] Phone: State/Zip Code: Email: Financial Information Financial Class: Primary Plan Desc:[employer] [place] IP Primary Plan Number:[id number] Secondary Plan Desc: Secondary Plan Number: Assessment Information [facility] CM Progress Note CM Note CM Note Notes: Pt presented to the ED via EMS from home for pain related to chemo treatments and altered mental status. Patient's longtime friend and her former customer service representative, Nikia Vega ([phone]), and other former caregiver and friend Lyndsey Dewayne ([phone]) arrived to the ED. Spoke with Sheyla at length regarding patient being started on hospice. Per Sheyla, [facility] ([phone]) went to the ''s home yesterday and completed an informational session but at that time the pt was undecided whether she wanted to start hospice. [facility] followed up with pt, Lyndsey Montejo and pt's [id number] Gloria Quiroz ([phone]) today about admitting to hospice but since the patient's mental status had become more altered, [facility] would need patient's POA, her ex- Blaze Cruz ([phone]) to sign the necessary paperwork to admit. Sheyla made multiple attempts to contact Blaze today but he was on a flight back home to [place]. This CM was able to speak to Blaze who was on his way from [facility] to [facility]. Blaze arrived to ED with POA paperwork (which was scanned into pt's e-chart). He is willing to sign paperwork to admit pt to hospice. BlazeNikia Laura, Gloria and several friends/caregivers in the room agree that it would be best for patient to be started on hospice. Spoke with Heahter at [facility] and she tried to see if an RN was available to complete an admission tonight and that the RN would have orders for pain control (so pt could potentially dc home with hospice tonight), but ultimately an RN was unavailable. Pt admitted for pain control with plans for [facility] to assess/admit at 10a.m. Blaze is aware he needs to be present and will try to arrive by 9:45am. There was discussion about patient being directly admitted to [facility] if there is a bed available; this appears to be family and friend's preference if possible. CM to follow. Date Signed: 09/23/2017 05:37 PM Electronically Signed By:Winifred Pennington RN Intervention Information
== END 2017-09-24 04:00 | disposition expired | DRG 948 ==
LOC: EDUNIT# → F1N 17:27
PROVIDERS: ADMIT Internal Medicine; ATTEND Internal Medicine
DX: G89.3 Neoplasm related pain (acute) (chronic) (principal); C79.9 Secondary malignant neoplasm of unspecified site; R41.82 Altered mental status, unspecified; G71.0 Muscular dystrophy; F17.210 Nicotine dependence, cigarettes, uncomplicated; Z85.3 Personal history of malignant neoplasm of breast; Z88.2 Allergy status to sulfonamides
CPT/HCPCS: 96374; J2060